=== PATIENT | male | born 1985 | race Caucasian/White ===

== ENCOUNTER 2020-05-23 07:02 | Emergency (ER) | payer OTHER ==
[~2020-05-23] VITALS: Ht 188 cm; Wt 109.6 kg
[2020-05-23 07:04] VITALS: BP 112/70
[2020-05-23] MEDS ORDERED: KETOROLAC 30 MG/1 ML ONE (07:23)
[2020-05-23] MEDS ORDERED: METHOCARBAMOL 750 MG TABLET ONE ×2 (07:23)
--- NOTE | 2020-05-23 07:29 | NUR ---
MEDICATED PER ORDERS FOR BACK PAIN. PT HURT BACK BENDING OVER.
[2020-05-23] MEDS ORDERED: METHOCARBAMOL 750 MG TABLET PO ONE (07:30)
[2020-05-23] MEDS ORDERED: KETOROLAC 30 MG/1 ML IM ONE (07:30)
--- NOTE | 2020-05-23 08:27 | NUR ---
Patient/Caregiver given discharge instructions and they have confirmed that they understand the instructions. Patient ambulatory with steady gait.
== END 2020-05-23 08:29 | disposition home or self-care (01) ==
LOC: ED 08:14
DX: S39.012A Strain of muscle, fascia and tendon of lower back, initial encounter (principal); M51.26 Other intervertebral disc displacement, lumbar region; X58.XXXA Exposure to other specified factors, initial encounter; Y93.89 Activity, other specified; Y92.89 Other specified places as the place of occurrence of the external cause; Y99.8 Other external cause status
CPT/HCPCS: 72131; 96372; 99284; J1885